=== PATIENT | female | born 1955 | race Caucasian/White ===

== ENCOUNTER 2017-12-03 11:16 | Emergency (ER) | payer OTHER ==
[2017-12-03 11:28] VITALS: BP 149/89
[2017-12-03] MEDS ORDERED: IBUPROFEN 200 MG TAB PO ONE (11:31)
--- NOTE | 2017-12-03 11:36 | EDPHY ---
H & P Stated Complaint: Left hand and wrist pain Time Seen by Provider: 12/03/17 11:32 HPI/ROS: CHIEF COMPLAINT: Left hand and wrist pain HISTORY OF PRESENT ILLNESS: The patient is a 62-year-old female who comes to the emergency department complaining of left hand and wrist pain. She states that she slipped and fell onto an outstretched hand. It bent her hand dorsally. She has pain from her mid forearm down but mostly in her hand and wrist. She has some minor bruising and swelling to the dorsum of her hand. Normal range of motion and strength. Normal sensation and capillary refill. REVIEW OF SYSTEMS: Constitutional: denies: chills, fever, recent illness, recent injury EENTM: denies: blurred vision, double vision, nose congestion Respiratory: denies: cough, shortness of breath Cardiac: denies: chest pain, irregular heart rate, lightheadedness, palpitations Gastrointestinal/Abdominal: denies: abdominal pain, diarrhea, nausea, vomiting, blood streaked stools Genitourinary: denies: dysuria, frequency, hematuria, pain Musculoskeletal: See HPI Skin: denies: lesions, rash, jaundice, bruising Neurological: denies: headache, numbness, paresthesia, tingling, dizziness, weakness Hematologic/Lymphatic: denies: blood clots, easy bleeding, easy bruising Immunologic/allergic: denies: HIV/AIDS, transplant EXAM: GENERAL: Well-appearing, well-nourished and in no acute distress. HEAD: Atraumatic, normocephalic. EYES: Pupils equal round and reactive to light, extraocular movements intact, sclera anicteric, conjunctiva are normal. ENT: TMs normal, nares patent, oropharynx clear without exudates. Moist mucous membranes. NECK: Normal range of motion, supple without lymphadenopathy or JVD. LUNGS: Breath sounds clear to auscultation bilaterally and equal. No wheezes rales or rhonchi. HEART: Regular rate and rhythm without murmurs, rubs or gallops. ABDOMEN: Soft, nontender, normoactive bowel sounds. No guarding, no rebound. No masses appreciated. BACK: No CVA tenderness, no spinal tenderness, step-offs or deformities EXTREMITIES: Pain to hand and wrist, normal range of motion and strength. Normal sensation. Very slight bruising to hand dorsally, minimal swelling. NEUROLOGICAL: Cranial nerves II through XII grossly intact. Normal speech, normal gait. 5/5 strength, normal movement in all extremities, normal sensation PSYCH: Normal mood, normal affect. SKIN: Warm, dry, normal turgor, no visible rashes or lesions. Source: Patient, Family Exam Limitations: No limitations - Personal History Current Tetanus Diphtheria and Acellular Pertussis (TDAP): Yes Tetanus Vaccine Date: 2012 - Medical/Surgical History Hx Asthma: Yes Hx Chronic Respiratory Disease: No Hx Diabetes: No Hx Cardiac Disease: No Hx Renal Disease: No Hx Cirrhosis: No Hx Alcoholism: No Hx HIV/AIDS: No Hx Splenectomy or Spleen Trauma: No Other PMH: Hx-asthma when sick,occasional le edema d/t altitude. Surg-pierre,2 c -sect,abd-plasty - Family History Significant Family History: No pertinent family hx - Social History Smoking Status: Never smoked Alcohol Use: None Constitutional: Initial Vital Signs Temperature (C) 37.0 C 12/03/17 11:21 Heart Rate 72 12/03/17 11:21 Respiratory Rate 16 12/03/17 11:21 Blood Pressure 149/89 H 12/03/17 11:21 O2 Sat (%) 95 12/03/17 11:21 O2 Delivery Mode Room Air Allergies/Adverse Reactions: thiethylperazine maleate [From Torecan] Allergy (Intermediate, Verified 11:19) dysphagia levofloxacin [From Levaquin] Allergy (Verified 12/03/17 11:19) Home Medications: Medication Instructions Recorded Nexium 12/15/15 Ventolin Hfa 12/03/17 Medical Decision Making - Diagnostics Imaging Results: Imaging Impressions Hand X-Ray 12/03/17 11:30 Impression: Nothing acute identified. 2. Left Hand, Three Views History: Pain post trauma. Fall. Findings: There is a small triangular bone chip adjacent to the mid lateral, third metacarpal head. No other fracture or dislocation is identified. Impression: Small third metacarpal bone chip. Otherwise negative. Results called to Dr. Torrez at 1:21 pm. Wrist X-Ray 12/03/17 11:35 Impression: Nothing acute identified. 2. Left Hand, Three Views History: Pain post trauma. Fall. Findings: There is a small triangular bone chip adjacent to the mid lateral, third metacarpal head. No other fracture or dislocation is identified. Impression: Small third metacarpal bone chip. Otherwise negative. Results called to Dr. Torrez at 1:21 pm. Imaging: I viewed and interpreted images myself (Negative for fracture) Procedures: Procedure: Splint placement. A Velcro wrist splint was applied. After application of the splint I returned and re-examined the patient. The splint was adequately immobilizing the joint and distal to the splint the patient's circulation and sensation was intact. ED Course/Re-evaluation: Patient's x-rays are reassuring. No significant fractures or subluxation. Patient is reassured. She has very slight snuffbox tenderness. I will place her in a wrist brace and have her follow up with Orthopedics in 1 week. She understands this plan and is relieved. Encouraged Tylenol and ibuprofen and ice. Differential Diagnosis: Partial list of the Differential diagnosis considered include but were not limited to; contusion, strain ligamentous injury and although unlikely based on the history and physical exam, I also considered fracture dislocation, vascular injury, nerve injury. I discussed these differential diagnoses and the plan with the patient as well as the usual and expected course. The patient understands that the diagnosis is provisional and that in medicine we are not always correct and that further workup is often warranted. Usual and customary warnings were given. All of the patient's questions were answered. The patient was instructed to return to the emergency department should the symptoms at all worsen or return, otherwise to followup with the physician as we discussed. - Data Points Medications Given: Discontinued Medications Ibuprofen (Motrin) 600 mg PO EDNOW ONE Stop: 12/03/17 11:32 Last Admin: 12/03/17 11:36 Dose: 600 mg Departure - Departure Disposition: Home, Routine, Self-Care Clinical Impression: Left wrist injury Qualifiers: Encounter type: initial encounter Qualified Code(s): S69.92XA - Unspecified injury of left wrist, hand and finger(s), initial encounter Condition: Fair Instructions: Wrist Injury (ED) Referrals: NONE *PRIMARY CARE P,. [Primary Care Provider] - As per Instructions Josemanuel Ramirez MD [Medical Doctor] - 5-7 days, call for appt.
== END 2017-12-03 12:15 | disposition home or self-care (01) ==
LOC: CED 11:16
DX: S69.92XA Unspecified injury of left wrist, hand and finger(s), initial encounter (principal); J45.909 Unspecified asthma, uncomplicated; W01.0XXA Fall on same level from slipping, tripping and stumbling without subsequent striking against object, initial encounter
CPT/HCPCS: 73110-PO; 73130-PO